=== PATIENT | male | born 1970 | race Caucasian/White ===

== ENCOUNTER 2016-10-07 10:06 | Emergency (ER) | payer BC ==
--- NOTE | 2016-10-07 12:14 | RAD ---
Indication: Right shoulder pain. 3 views of the right shoulder demonstrates AC joint arthritis. No fracture is noted. IMPRESSION: AC joint arthritis. No fracture is noted.
--- NOTE | 2016-10-07 12:45 | UC ---
Roxann Cotter SooYoung, scribed for Mary Ann Francois MD on 10/07/16 at 1200 . Upper Extremity HPI - HPI Summary HPI Summary: A 46 y/o M presents to [facility] with acute on chronic R shoulder pain onset last night. Notes progressively worsening pain for past three years. Pt recently began seeing a chiropractor 2x a week (Dr. Larson at [facility]) . He works at [employer] and does a lot of heavy lifting. He has not worked this weekend. Denies elbow, hand pain. Has not been taking any pain medication. Pt is on HTN medication. No p/d. No known hx shoulder injury. No neck pain c/o's , although has had neck pain in the past. Was treated with nsaid and flexeril several months ago, per pcp, for another issues (plantar f.). At that time he had a referral to orthopedist, but did not need it 2/2 medication helped the pain. He notes that the medication helped his shoulder pain as well. - History of Current Complaint Chief Complaint: UCUpperExtremity Stated Complaint: SHOULDER PAIN Time Seen by Provider: 10/07/16 11:31 Hx Obtained From: Patient Onset/Duration: Still Present Severity Initially: Moderate Severity Currently: Severe Pain Intensity: 8 Pain Scale Used: 0-10 Numeric - Allergies/Home Medications Allergies/Adverse Reactions: Allergies Allergy/AdvReac Type Severity Reaction Status Date / Time Shellfish Allergy Allergy Hives Verified 10/07/16 10:50 PMH/Surg Hx/FS Hx/Imm Hx Previously Healthy: No Cardiovascular History Of: Reports: Hypertension Respiratory History Of: Reports: Asthma - as child/young adult - Surgical History Surgical History: None - Family History Known Family History: Negative: Blood Disorder - Social History Occupation: Employed Part-time Lives: With Family Alcohol Use: Weekly Substance Use Type: None Smoking Status (MU): Never Smoked Tobacco Review of Systems Constitutional: Negative Musculoskeletal: Arthralgia - R shoulder pain All Other Systems Reviewed And Are Negative: Yes Physical Exam Triage Information Reviewed: Yes Appearance: Well-Appearing, Well-Nourished Vital Signs: Initial Vital Signs Temp 98.2 F 10/07/16 10:45 Pulse 65 10/07/16 10:45 Resp 18 10/07/16 10:45 BP 133/93 10/07/16 10:45 Pulse Ox 96 10/07/16 10:45 Vital Signs Reviewed: Yes Eye Exam: Normal ENT Exam: Normal Neck exam: Normal Neck: Positive: Nontender Respiratory Exam: Normal Respiratory: Positive: Chest non-tender, Lungs clear, Normal breath sounds, No respiratory distress, No accessory muscle use Cardiovascular Exam: Normal - generally good skin color Cardiovascular: Positive: RRR, Brisk Capillary Refill Abdominal Exam: Normal Abdomen Description: Positive: Nontender Musculoskeletal: Positive: Other: - R shoulder tender AC region (to pressure). Also tender post shoulder, shoulder upper scapula. Painful abduct > 90 deg. Ax N sens intact Bilat. R / U pp 2+ equal. "ok" thumb to index / 5th finger ok. Distal sens LT intact. Able to straighten elbow. FROM wrist and hand. Neurological Exam: Normal - non focal, grossly intact Psychological Exam: Normal - conversing easily and appropriately Skin Exam: Normal - no visible or reported rashes Diagnostics - Radiology R SHOULDER Xray Interpretation: Positive (See Comments) - IMPRESSION: AC joint arthritis. No fx noted. Radiology Interpretation Completed By: Radiologist Upper Extremity Course/Dx - Course Course Of Treatment: Mildly elevated BP but has current hypertension diagnosis. [facility] I-stop reference number: #[id number]. No report. Declines work note. Declines sling. Reviewed xray report with Mr. Soler. + AC arthritis. He will f/u pcp. Referral to orthopedist as well. He plans to see his chiropracter in the future, will share xray with him. Arthritis AC joint. Suspect concomitant tendonitis. Questions answered to the best of my ability. - Differential Dx/Diagnosis Provider Diagnoses: Arthritis AC. Shoulder pain / overuse syndrome Discharge - Discharge Plan Condition: Stable Disposition: HOME Prescriptions: Cyclobenzaprine TAB* [Flexeril 10 MG TAB*] 10 mg PO BID PRN #30 tab PRN Reason: Spasms Meloxicam [Mobic] 15 mg PO DAILY PRN #30 tab PRN Reason: Pain Patient Education Materials: Osteoarthritis (ED), Tendinitis (ED) Referrals: Mac Kruger MD [Primary Care Provider] - Guilherme Ryan MD [Medical Doctor] - Additional Instructions: Please follow up with your primary care provider, Dr. Kruger, per routine. Seek medical attention for worsening problems in the meantime. Follow up with Dr. Ryan, orthopedics, as we discussed. Call tomorrow for appointment for the next 1 -2 weeks. Seek medical attention sooner for worse or new problems in the meantime. Xray - > AC arthritis. I suspect concomitant tendonitis. The documentation as recorded by the Roxann thompson SooYoung accurately reflects the service I personally performed and the decisions made by me, Mary Ann Francois MD.
[2016-10-07 12:47] VITALS: BP 133/83
== END 2016-10-07 12:40 | disposition home or self-care (01) ==
LOC: UCEAST 10:06
DX: M19.011 Primary osteoarthritis, right shoulder (principal); M70.811 Other soft tissue disorders related to use, overuse and pressure, right shoulder; M25.511 Pain in right shoulder; I10 Essential (primary) hypertension; Z91.013 Allergy to seafood
CPT/HCPCS: 99212; G0463

== ENCOUNTER 2018-05-26 13:32 | Emergency (ER) | payer BC ==
[2018-05-26 13:42] VITALS: BP 133/92
--- NOTE | 2018-05-26 13:47 | UC ---
Respiratory Complaint HPI - HPI Summary HPI Summary: 48 yo male presents with 11 days of sinus pain/pressure/congestion, productive cough with yellow/clear phlegm, and laryngitis over the last 2-3 days. He has not been taking anything OTC. Denies fever, chills, SOB, chest pain, rash. - History of Current Complaint Chief Complaint: UCRespiratory Stated Complaint: CONGESTED Time Seen by Provider: 05/26/18 13:47 Hx Obtained From: Patient Onset/Duration: Gradual Onset Severity Initially: Mild Severity Currently: Mild Pain Intensity: 3 Pain Scale Used: 0-10 Numeric Character: Cough: Productive - Allergies/Home Medications Allergies/Adverse Reactions: Allergies Allergy/AdvReac Type Severity Reaction Status Date / Time shellfish derived Allergy Hives Verified 05/26/18 13:43 PMH/Surg Hx/FS Hx/Imm Hx Cardiovascular History: Hypertension - Surgical History Surgical History: None - Family History Known Family History: Negative: Blood Disorder - Social History Occupation: Employed Full-time Lives: With Family Alcohol Use: Weekly Substance Use Type: None Smoking Status (MU): Never Smoked Tobacco Review of Systems All Other Systems Reviewed And Are Negative: Yes Constitutional: Positive: Negative Skin: Positive: Negative Eyes: Positive: Negative ENT: Positive: Nasal Discharge, Sinus Congestion, Sinus Pain/Tenderness Respiratory: Positive: Cough Cardiovascular: Positive: Negative Gastrointestinal: Positive: Negative Neurovascular: Positive: Negative Neurological: Positive: Negative Psychological: Positive: Negative Physical Exam - Summary Physical Exam Summary: GENERAL: NAD. WDWN. No pain distress. SKIN: No rashes, sores, lesions, or open wounds. HEENT: Head: AT/NC Eyes: EOM intact. Conjunctiva clear without inflammation or discharge. Ears: Hearing grossly normal. TMs intact, no bulging, erythema, or edema. Nose: Nasal mucosa moderately swollen and erythematous with yellow/ clear discharge. TTP maxillary and frontal sinus. Positive post nasal drip Throat: Posterior oropharynx without exudates, erythema, or tonsillar enlargement. Uvula midline. NECK: Supple. Nontender. No lymphadenopathy. CHEST: CTAB. No r/r/w. No accessory muscle use. Breathing comfortably and in no distress. CV: RRR. Without m/r/g. Pulses intact. NEURO: Alert. PSYCH: Age appropriate behavior. Triage Information Reviewed: Yes Vital Signs: Initial Vital Signs Temp 98.5 F 05/26/18 13:39 Pulse 93 05/26/18 13:39 Resp 20 05/26/18 13:39 BP 133/92 05/26/18 13:39 Pulse Ox 96 05/26/18 13:39 Vital Signs Reviewed: Yes UC Diagnostic Evaluation - Laboratory O2 Sat by Pulse Oximetry: 96 Respiratory Course/Dx - Course Course Of Treatment: Sinusitis - Differential Dx/Diagnosis Provider Diagnosis: Sinusitis Discharge - Sign-Out/Discharge Documenting (check all that apply): Patient Departure All imaging exams completed and their final reports reviewed: No Studies - Discharge Plan Condition: Stable Disposition: HOME Prescriptions: Amoxicillin PO (*) [Amoxicillin 875 MG (*)] 875 mg PO BID #14 tab Patient Education Materials: Sinusitis (ED) Referrals: Mac Kruger MD [Primary Care Provider] - Additional Instructions: If you develop a fever, shortness of breath, chest pain, new or worsening symptoms - please call your PCP or go to the ED. Your blood pressure was high at todays visit. Please see your primary provider within 4 weeks for recheck and re-evaluation. - Billing Disposition and Condition Condition: STABLE Disposition: Home
== END 2018-05-26 13:55 | disposition home or self-care (01) ==
LOC: UCEAST 13:32
DX: J32.9 Chronic sinusitis, unspecified (principal); I10 Essential (primary) hypertension
CPT/HCPCS: 99212; G0463

== ENCOUNTER 2018-07-02 17:12 | Emergency (ER) | payer BC ==
--- NOTE | 2018-07-02 17:59 | ED ---
GI/ HPI - HPI Summary HPI Summary: A 48 y/o male accompanied by his girlfriend presents to the ED c/o pain at the head of his penis reaching 6/10 in severity. As per triage, "swollen at tip of penis, able to urinate but painful. sexual active with one partner". According to the patient, the head of his penis has been painful for the past 1.5 weeks. Patient noted that it is painful to urinate. Patient denies any nausea, vomiting , or abdominal pain. Patient has no other medical issues at this time. Patient has never seen a neurologist or urologist. Patient takes BP medications. - History of Current Complaint Chief Complaint: EDUrogenitalProblems Time Seen by Provider: 07/02/18 17:42 Stated Complaint: GENERAL Hx Obtained From: Patient Onset/Duration: Started Weeks Ago, Still Present Timing: Constant Severity: Moderate Current Severity: Moderate Pain Intensity: 6 Additional Locations for Males: Penis Pain Characteristics: Unable to describe Associated Signs and Symptoms: Positive: Negative Additional Signs & Symptoms: Positive: Penile Swelling Aggravating Factor(s): Nothing Alleviating Factor(s): Nothing - Allergy/Home Medications Allergies/Adverse Reactions: Allergies Allergy/AdvReac Type Severity Reaction Status Date / Time feathers Allergy Sneezing Verified 07/02/18 17:17 shellfish derived Allergy Hives Verified 05/26/18 13:43 PMH/Surg Hx/FS Hx/Imm Hx Cardiovascular History: Reports: Hx Hypertension Respiratory History: Reports: Hx Asthma - as child/young adult - Surgical History Surgery Procedure, Year, and Place: none - Immunization History Immunizations Up to Date: Yes Infectious Disease History: No Infectious Disease History: Denies: Traveled Outside the [place] in Last 30 Days - Family History Known Family History: Negative: Blood Disorder - Social History Alcohol Use: Occasionally Substance Use Type: Reports: None Smoking Status (MU): Never Smoked Tobacco Review of Systems Negative: Fever Negative: Abdominal Pain, Vomiting, Nausea Positive: pain All Other Systems Reviewed And Are Negative: Yes Physical Exam - Summary Physical Exam Summary: Appearance: Well-appearing, Well-nourished, lying in bed comfortably Skin: Warm, dry, no obvious rash Eyes: sclera anicteric, no conjunctival pallor ENT: mucous membranes moist, pharynx appears normal Neck: Supple, nontender Respiratory: Clear to auscultation, no signs of respiratory distress Cardiovascular: Normal S1, S2. No murmurs. Normal distal pulses in tibial and radial bilaterally. Abdomen: Soft, nontender, normal active bowel sounds present Musculoskeletal: Normal, Strength/ROM Intact : Diffuse erythema along the glans and foreskin. Foreskin can be retracted over the glans freely and is mobile. Neurological: A&Ox3, awake and alert, mentation is normal, speech is fluent and appropriate Psychiatric: affect is normal, does not appear anxious or depressed Triage Information Reviewed: Yes Vital Signs On Initial Exam: Initial Vitals Temp Pulse Resp BP Pulse Ox 97 F 72 16 149/87 96 07/02/18 17:14 07/02/18 17:14 07/02/18 17:14 07/02/18 17:14 07/02/18 17:14 Vital Signs Reviewed: Yes Diagnostics - Vital Signs Vital Signs Temp Pulse Resp BP Pulse Ox 07/02/18 17:14 97 F 72 16 149/87 96 - Laboratory Lab Statement: Any lab studies that have been ordered have been reviewed, and results considered in the medical decision making process. GIGU Course/Dx - Course Course Of Treatment: A 48 y/o male accompanied by his girlfriend presents to the ED c/o pain at the head of his penis reaching 6/10 in severity. According to the patient, the head of his penis has been painful for the past 1.5 weeks. Patient noted that it is painful to urinate. Patient denies any nausea, vomiting , or abdominal pain. Patient has no other medical issues at this time. Physical examination findings significant for diffuse erythema along the glans and foreskin. Foreskin can be retracted over the glans freely and is mobile. No laboratory scans were done. No laboratory screens were done. In the ED course, the patient received no medications. Patient will be discharged with a diagnosis of Balanitis. He will be sent home with prescription for Lotrisone cream and is to take it as prescribed. Patient is to follow up with urology in 5 days. Patient is to return to ED for any new or worsening symptoms. Patient is agreeable with this plan. - Diagnoses Provider Diagnoses: Balanitis Discharge - Sign-Out/Discharge Documenting (check all that apply): Patient Departure - DISCHARGE - Discharge Plan Condition: Stable Disposition: HOME Prescriptions: Clotrimazole/Betamethasone* [Lotrisone Cream*] 1 applic TOPICAL BID #1 tube Patient Education Materials: Balanitis (ED) Referrals: Homer Dimas MD [Medical Doctor] - 5 Days (if symptoms are not improved) Additional Instructions: FOLLOW UP WITH UROLOGY IN 5 DAYS. RETURN TO ED FOR ANY NEW OR WORSENING SYMPTOMS. - Billing Disposition and Condition Condition: STABLE Disposition: Home - Attestation Statements Document Initiated by Scribe: Yes Documenting Scribe: Ronny So Provider For Whom Scribe is Documenting (Include Credential): Krishna Dahl MD Scribe Attestation: Ronny Cotter, scribed for Krishna Dahl MD on 07/02/18 at 1945. Scribe Documentation Reviewed: Yes Provider Attestation: The documentation as recorded by the Ronny thompson accurately reflects the service I personally performed and the decisions made by meKrishna MD Status of Scribe Document: Viewed
[2018-07-02 18:07] VITALS: BP 146/85
== END 2018-07-02 18:06 | disposition home or self-care (01) ==
LOC: ED 17:12
DX: N48.1 Balanitis (principal); I10 Essential (primary) hypertension
CPT/HCPCS: 99281

== ENCOUNTER → 2018-09-30 18:29 | Emergency (ER) | payer BC ==
[~2018-09-30 18:29] MED LIST: HYDROcodone/ACETAMIN 5-325 MG* 1 TAB PO ONE; Iohexol 300* (CONTRAST) 10 ML SDV IV ONE; Morphine 10 MG/ML VIAL (1 ml) IV ONE; NS 0.9% 1000 ML** 1,000 ML IV ONE; Ondansetron INJ* 2 MG/ML VIAL IV ONE
[2018-09-30 20:13] LABS: ABS Basophils 0 10^3/ul (0-0.2); ABS Eosinophils 0.1 10^3/ul (0-0.6); ABS Lymphocytes 1.3 10^3/ul (1.0-4.8); ABS Monocytes 0.5 10^3/ul (0-0.8); ABS Neutrophils 5.8 10^3/ul (1.5-7.7); ABS Nucleated RBC 0 10^3/ul; Eosinophil % 1.5 %; Hematocrit 46 % (36-46); Hemoglobin 15.7 g/dL (14.0-18.0); Lymphocyte % 17.1 %; Mean Corpuscular HGB Conc 34 g/dL (31-36); Mean Corpuscular Hemoglobin 30 pg (27-31); Mean Corpuscular Volume 88 fL (80-94); Mean Platelet Volume 8.3 fL (7.4-10.4); Nucleated Red Blood Cells % 0; Platelet Count 217 10^3/uL (150-450); Red Blood Count 5.18 10^6 /uL (4.18-5.48); Red Cell Distribution Width 14 % (10.5-15); White Blood Count 7.8 10^3/uL (3.5-10.8)
[2018-09-30 20:30] LABS: Albumin 4.2 g/dL (3.2-5.2); Albumin/Globulin Ratio 1.6 (1-3); BUN/Creatinine Ratio 14.3 (8-20); C Reactive Protein 15.53 mg/L (<8.01); Calcium 8.9 mg/dL (8.6-10.3); EGFR African American 90.5 (>60); EGFR Non-African American 74.8 (>60); Globulin 2.7 g/dL (2-4); Potassium 3.8 mmol/L (3.5-5.0); Total Bilirubin 0.5 mg/dL (0.2-1.0); Total Protein 6.9 g/dL (6.4-8.9)
[2018-09-30 20:32] LABS: Urine Appearance Cloudy; Urine Bilirubin Negative (Negative); Urine Blood Negative (Negative); Urine Color Yellow; Urine Glucose Negative (Negative); Urine Ketones Negative (Negative); Urine Nitrite Negative (Negative); Urine Protein Negative (Negative); Urine Specific Gravity 1.024 (1.010-1.030); Urine Urobilinogen Negative (Negative)
--- NOTE | 2018-09-30 21:50 | ED ---
Abdominal Pain/Male - HPI Summary HPI Summary: Patient complains of intermittent abdominal pain starting Saturday with associated diarrhea. Abdominal pain described as intermittent, crampy, diffuse. Patient states pain was gone yesterday but came back worse today. Denies diarrhea yesterday and today. Normal bowel movements yesterday and today. Denies foreign travel, fever, cough, sore throat, CP, SOB, N/V, change in urine. Medical history is HTN, HDL. Abdominal surgical history is none. - History of Current Complaint Chief Complaint: EDAbdPain Stated Complaint: ABD PAIN PER PT Time Seen by Provider: 09/30/18 19:44 Hx Obtained From: Patient Onset/Duration: Sudden Onset, Lasting Days Timing: Intermittent Severity Initially: Moderate Severity Currently: Moderate Pain Intensity: 5 Pain Scale Used: 0-10 Numeric Location: Diffuse Radiates: No Character: Cramping Aggravating Factor(s): Nothing Alleviating Factor(s): Nothing Associated Signs And Symptoms: Positive: Diarrhea - Allergies/Home Medications Allergies/Adverse Reactions: Allergies Allergy/AdvReac Type Severity Reaction Status Date / Time feathers Allergy Sneezing Verified 09/30/18 18:38 shellfish derived Allergy Hives Verified 09/30/18 18:38 Flu vaccine Allergy Swelling Uncoded 09/30/18 18:38 PMH/Surg Hx/FS Hx/Imm Hx Endocrine/Hematology History: Denies: Hx Diabetes Cardiovascular History: Reports: Hx Hypertension Respiratory History: Reports: Hx Asthma - as child/young adult History: Denies: Hx Renal Disease Sensory History: Denies: Hx Eye Prosthesis Opthamlomology History: Denies: Hx Legally Blind Neurological History: Denies: Hx Dementia Psychiatric History: Denies: Hx Autism - Surgical History Surgery Procedure, Year, and Place: none Infectious Disease History: No Infectious Disease History: Denies: Traveled Outside the [place] in Last 30 Days - Family History Known Family History: Negative: Blood Disorder - Social History Alcohol Use: Occasionally Substance Use Type: Reports: None Smoking Status (MU): Never Smoked Tobacco Review of Systems Constitutional: Negative Eyes: Negative ENT: Negative Cardiovascular: Negative Respiratory: Negative Positive: Abdominal Pain Genitourinary: Negative Musculoskeletal: Negative Skin: Negative Neurological: Negative Psychological: Normal All Other Systems Reviewed And Are Negative: Yes Physical Exam - Summary Physical Exam Summary: Mildly tender diffusely on abdominal exam. Lung sounds clear to auscultation bilaterally. RRR. Triage Information Reviewed: Yes Vital Signs On Initial Exam: Initial Vitals Temp Pulse Resp BP Pulse Ox 97.4 F 71 20 140/95 98 09/30/18 18:34 09/30/18 18:34 09/30/18 18:34 09/30/18 18:34 09/30/18 18:34 Vital Signs Reviewed: Yes Appearance: Positive: Well-Appearing Skin: Positive: Warm Head/Face: Positive: Normal Head/Face Inspection Eyes: Positive: Normal Neck: Positive: Supple Respiratory/Lung Sounds: Positive: Clear to Auscultation Cardiovascular: Positive: Normal Abdomen Description: Positive: Other: Musculoskeletal: Positive: Normal Neurological: Positive: Normal Psychiatric: Positive: Normal AVPU Assessment: Alert - [place] Coma Scale Best Eye Response: 4 - Spontaneous Best Motor Response: 6 - Obeys Commands Best Verbal Response: 5 - Oriented Coma Scale Total: 15 Diagnostics - Vital Signs Vital Signs Temp Pulse Resp BP Pulse Ox 09/30/18 20:30 97.4 F 76 18 143/107 95 09/30/18 20:11 18 09/30/18 18:34 97.4 F 71 20 140/95 98 - Laboratory Lab Results: Lab Results 09/30/18 09/30/18 09/30/18 Range/Units 19:47 20:04 20:04 WBC 7.8 (3.5-10.8) 10^3/uL RBC 5.18 (4.18-5.48) 10^6 /uL Hgb 15.7 (14.0-18.0) g/dL Hct 46 (36-46) % MCV 88 (80-94) fL MCH 30 (27-31) pg MCHC 34 (31-36) g/dL RDW 14 (10.5-15) % Plt Count 217 (150-450) 10^3/uL MPV 8.3 (7.4-10.4) fL Neut % (Auto) 75.2 % Lymph % (Auto) 17.1 % [place] % (Auto) 5.9 % Eos % (Auto) 1.5 % Baso % (Auto) 0.3 % Absolute Neuts (auto) 5.8 (1.5-7.7) 10^3/ul Absolute Lymphs (auto) 1.3 (1.0-4.8) 10^3/ul Absolute Monos (auto) 0.5 (0-0.8) 10^3/ul Absolute Eos (auto) 0.1 (0-0.6) 10^3/ul Absolute Basos (auto) 0 (0-0.2) 10^3/ul Absolute Nucleated RBC 0 10^3/ul Nucleated RBC % 0 Sodium 138 (135-145) mmol/L Potassium 3.8 (3.5-5.0) mmol/L Chloride 102 (101-111) mmol/L Carbon Dioxide 31 (22-32) mmol/L Anion Gap 5 (2-11) mmol/L BUN 15 (6-24) mg/dL Creatinine 1.05 (0.67-1.17) mg/dL Est GFR ( Amer) 90.5 (>60) Est GFR (Non-Af Amer) 74.8 (>60) BUN/Creatinine Ratio 14.3 (8-20) Glucose 98 (70-100) mg/dL Calcium 8.9 (8.6-10.3) mg/dL Total Bilirubin 0.50 (0.2-1.0) mg/dL AST 27 (13-39) U/L ALT 47 (7-52) U/L Alkaline Phosphatase 55 (34-104) U/L C-Reactive Protein 15.53 H (<8.01) mg/L Total Protein 6.9 (6.4-8.9) g/dL Albumin 4.2 (3.2-5.2) g/dL Globulin 2.7 (2-4) g/dL Albumin/Globulin Ratio 1.6 (1-3) Lipase 25 (11.0-82.0) U/L Urine Color Yellow Urine Appearance Cloudy Urine pH 6.0 (5-9) Ur Specific [place] 1.024 (1.010-1.030) Urine Protein Negative (Negative) Urine Ketones Negative (Negative) Urine Blood Negative (Negative) Urine Nitrate Negative (Negative) Urine Bilirubin Negative (Negative) Urine Urobilinogen Negative (Negative) Ur Leukocyte Esterase Negative (Negative) Urine Glucose Negative (Negative) Result Diagrams: 09/30/18 20:04 09/30/18 20:04 Lab Statement: Any lab studies that have been ordered have been reviewed, and results considered in the medical decision making process. Abdominal Pain Male Course/Dx - Course Course Of Treatment: Patient complains of intermittent abdominal pain starting Saturday with associated diarrhea. Abdominal pain described as intermittent, crampy, diffuse. Patient states pain was gone yesterday but came back worse today. Denies diarrhea yesterday and today. Normal bowel movements yesterday and today. Denies foreign travel, fever, cough, sore throat, CP, SOB, N/V, change in urine. Medical history is HTN, HDL. Abdominal surgical history is none. Physical exam:Mildly tender diffusely on abdominal exam. Lung sounds clear to auscultation bilaterally. RRR. Vital signs within normal limits. Labs unremarkable. CT abdomen and pelvis with contrast positive for enteritis. Patient is no longer having diarrhea symptoms just abdominal pain. Rx for hydrocodone. Advised patient return for any new or worsening symptoms. Patient understands and approves of plan. - Diagnoses Provider Diagnoses: Enteritis Discharge - Sign-Out/Discharge Documenting (check all that apply): Patient Departure Patient Received Moderate/Deep Sedation with Procedure: No - Discharge Plan Condition: Stable Disposition: HOME Prescriptions: HYDROcodone/ACETAMIN 5-325 MG* [[place] 5-325 TAB*] 1 tab PO Q8H PRN 2 Days #6 tab MDD 3 tabs PRN Reason: Pain Patient Education Materials: Enteritis (ED) Referrals: Mac Kruger MD [Primary Care Provider] - Additional Instructions: Drink plenty fluids to maintain hydration. Follow-up with primary care. Return to the ED for any new or worsening symptoms. - Billing Disposition and Condition Condition: STABLE Disposition: Home
[2018-09-30 22:21] VITALS: BP 146/103
== END | disposition home or self-care (01) ==
LOC: ED 18:29
DX: K52.9 Noninfective gastroenteritis and colitis, unspecified (principal); I10 Essential (primary) hypertension
CPT/HCPCS: 36415; 74177; 80053; 81003; 83690; 85025; 86140; 96361; 96374; 96375; 99283; J2270; J2405; Q9967